=== PATIENT | female | born 1980 | race Caucasian/White ===

== ENCOUNTER 2021-05-22 12:21 | Emergency (ER) | payer OTHER, SELFPAY ==
--- NOTE | 2021-05-22 12:24 | ED.URI ---
HPI - URI/Sore Throat General Chief Complaint: Upper Respiratory Infection Stated Complaint: chest tightness/cough/upper back pain Time Seen by Provider: 05/22/21 12:24 Source: patient and RN notes reviewed History of Present Illness HPI Narrative: Patient is a 41-year-old female who presents the urgent care with complaints of harsh cough and upper back pain. Patient states that it started with cold symptoms approximately 3 weeks ago and is now settled in her chest. Patient states that she has been taking Robitussin-DM, Mucinex and cold and flu medication. Patient has been Covid vaccinated. Denies of any fevers, nausea, vomiting. No other acute complaints. No acute distress noted. Patient aware of the plan of care. Some parts of this dictation were generated by voice recognition software and may contain typographical and/or grammatical inaccuracies. Related Data Home Medications Medication Instructions Recorded Confirmed cetirizine 10 mg PO DAILY 05/22/21 05/22/21 drospirenone (contraceptive) 4 mg PO DAILY 05/22/21 05/22/21 [Slynd] Allergies Allergy/AdvReac Type Severity Reaction Status Date / Time sulfamethoxazole Allergy Unknown Anaphylaxis Verified 05/22/21 12:33 trimethoprim Allergy Unknown Anaphylaxis Verified 05/22/21 12:33 Review of Systems Review of Systems: CONSTITUTIONAL: Denies fever, chills, or sweats. EYES: Denies visual changes, redness, or discharge. ENT: Reports a mild postnasal drainage and rhinorrhea CARDIOVASCULAR: Denies chest pain, palpitations, or edema. RESPIRATORY: Reports of harsh cough without dyspnea GASTROINTESTINAL: Denies abdominal pain, nausea, vomiting, or diarrhea. GENITOURINARY: Denies dysuria or hematuria. SKIN: Denies rash or itching. MUSCULOSKELETAL: Reports of upper back pain exacerbated with cough NEUROLOGIC: Denies headache, numbness, or weakness. All other systems reviewed are negative, except as documented in HPI. [facility] Past Medical History Medical History (Updated 05/22/21 @ 12:37 by RAVI Ching) Asthma Social History Social History Smoking status: Never smoker Gender identity (if verbalized by the patient): Female Comments At the time of my signature, I reviewed and agree with the nursing past medical, surgical, social, and family history. There is no relevant family history pertinent to the patient complaint. Exam Narrative: GENERAL: This is a well-nourished, well-developed patient, in no apparent distress. HEAD: normocephalic, atraumatic. EYES: PERRL. Sclera clear/white. Vision is grossly intact. EARS: External ears normal, auditory canals clear and without drainage, TMs normal without perforation. Hearing grossly intact. NOSE: External nose normal with no obvious nasal discharge, nares without redness, no rhinorrhea. THROAT: Mucous membranes moist, posterior pharynx clear. NECK: Neck supple, non-tender without lymphadenopathy CARDIOVASCULAR: Regular rate and rhythm without murmurs, gallops, or rubs. RESPIRATORY: Slight crackles throughout. Breath sounds equal bilaterally. SKIN: warm, intact with no suspicious lesions or rash, good texture and turgor. NEURO: awake, alert, and oriented to person, place and time. There were no obvious focal neurologic abnormalities. EXTREMITIES: No clubbing, cyanosis, or edema. BACK: Nontender without deformity or crepitance. No flank tenderness. Course Vital Signs Vital signs: Vital Signs Temperature 98.4 F 05/22/21 12:26 Pulse Rate 102 H 05/22/21 12:26 Respiratory Rate 12 05/22/21 12:26 Blood Pressure 144/88 H 05/22/21 12:26 Pulse Oximetry 100 05/22/21 12:26 Temperature 98.4 F 05/22/21 12:26 Pulse Rate 102 H 05/22/21 12:26 Respiratory Rate 12 05/22/21 12:26 Blood Pressure 144/88 H 05/22/21 12:26 Pulse Oximetry 100 05/22/21 12:26 Reviewed-patient is informed that they may have pre-hypertension or hypertension based
[2021-05-22 12:26] VITALS: BP 144/88; PULSE 102; RESP 12; TEMP 36.9; O2SAT 100
== END 2021-05-22 12:57 | disposition home or self-care (01) ==
PROVIDERS: Emergency Provider Nurse Practitioner Family; PCP Physician Assistant
DX: J40 Bronchitis, not specified as acute or chronic (principal); J45.909 Unspecified asthma, uncomplicated
CPT/HCPCS: 99213; G0463

== ENCOUNTER 2022-02-26 10:47 | Emergency (ER) | payer OTHER, SELFPAY ==
[2022-02-26 11:00] VITALS: BP 128/92; PULSE 91; RESP 18; TEMP 36.6; O2SAT 100
--- NOTE | 2022-02-26 11:01 | ED.URI ---
HPI - URI/Sore Throat General Chief Complaint: Upper Respiratory Infection Stated Complaint: cough/chest tightness Time Seen by Provider: 02/26/22 11:15 Source: patient and RN notes reviewed Mode of arrival: ambulatory Limitations: no limitations History of Present Illness HPI Narrative: 42-year-old female presents to the [facility] with cough and chest congestion for about 2 weeks. States that she just got her COVID, was diagnosed with 12 February. States that her cough just has not gotten much better, worse over the last couple of days. Patient denies any fevers. Has a history of asthma. But has not used her inhaler. Related Data Home Medications Medication Instructions Recorded Confirmed cetirizine 10 mg tablet 10 mg PO DAILY 05/22/21 02/26/22 drospirenone (contraceptive) 4 mg 4 mg PO DAILY 05/22/21 02/26/22 (28) tablet (Slynd) benzonatate 100 mg capsule 100 mg PO TID PRN Cough 02/26/22 02/26/22 montelukast 10 mg tablet 10 mg PO DAILY 02/26/22 02/26/22 Allergies Allergy/AdvReac Type Severity Reaction Status Date / Time sulfamethoxazole Allergy Unknown Anaphylaxis Verified 02/26/22 10:58 trimethoprim Allergy Unknown Anaphylaxis Verified 02/26/22 10:58 Review of Systems Review of Systems: All systems reviewed & are unremarkable except as noted in HPI and below Constitutional: Constitutional: Reports no additional constitutional complaints, Denies chills and Denies fever(s) Eyes: Eyes: Reports no additional eye complaints ENT: Reports system reviewed and no additional complaints, except as documented Cardiovascular: Cardiovascular: Reports no additional cardiovascular complaints Respiratory: Respiratory: Reports as per HPI, Reports chest congestion, Reports cough, Reports dyspnea and Reports wheezing Gastrointestinal: Gastrointestinal: Reports no additional gastrointestinal complaints Musculoskeletal: Musculoskeletal: Reports no additional musculoskeletal complaints Integumentary/Breasts: Skin/Breast: Reports system reviewed and no additional complaints, except as docu Neurologic: Reports system reviewed and no additional complaints, except as documented Psychiatric: Psychiatric: Reports no additional psychiatric complaints Allergic/Immunologic: Allergic/Immunologic: Reports no additional allergic/immunologic complaints PMFSH Past Medical History Medical History Asthma Social History Social History (Reviewed 02/26/22 @ 21:06 by MAT Tello Smoking status: Never smoker Gender identity (if verbalized by the patient): Female Comments At the time of my signature, I reviewed and agree with the nursing past medical, surgical, social, and family history. There is no relevant family history pertinent to the patient complaint. Exam Const: General: healthy appearing, no acute distress and alert Nutritional Appearance: well nourished Orientation/consciousness: patient oriented x3 Limitations: no limitations HENMT: Head: normal to inspection Ears: external ears normal, TM's normal bilaterally and EAC's normal Eyes: General: appearance normal, both eyes and all related structures Pupils: Equal, round and reactive pupils present Neck: Neck: normal visual inspection, no lymphadenopathy and no meningeal signs Chest: Chest palpation & inspection: normal inspection of the chest Resp: Effort & Inspection: normal respiratory effort and no use of accessory muscles Auscultation: clear to auscultation bilaterally, no crackles, no rales, no rhonchi, wheezes left lower and right lower and diminished lung sounds bilateral throughout Cardio: Rate: regular rate Rhythm: regular rhythm GI: GI Palp: Yes Soft to palpation and No Tenderness to palpation present (GI) Back/Spine/Pelvis: Cervical Spine: normal cervical lordosis Thoracic/Lumbar Spine: thoracic and lumbar spine normal to inspection Skin: General skin exam: normal color Rashes: no r
[2022-02-26] MEDS: IPRATROPIUM BR 0.02% INH SOLN 0.5 MG/2.5 ML VIAL INHALATION (11:35)
[2022-02-26] MEDS: ALBUTEROL SULFATE NEB 2.5 MG/3 ML INH INHALATION (11:35)
[2022-02-26] MEDS: predniSONE 20 MG TABLET 40 MG PO (11:35)
== END 2022-02-26 12:18 | disposition home or self-care (01) ==
PROVIDERS: Emergency Provider Nurse Practitioner; PCP Physician Assistant
DX: J40 Bronchitis, not specified as acute or chronic (principal); Z86.16 Personal history of COVID-19; J45.909 Unspecified asthma, uncomplicated
CPT/HCPCS: 94640; 99213; G0463; J7512

== ENCOUNTER 2023-04-03 11:04 | Emergency (ER) | payer BC, OTHER, SELFPAY ==
[2023-04-03] VITALS (18 sets, daily range): BP systolic 102–118; BP diastolic 69–85; PULSE 91–124; RESP 9–23; TEMP 36.8; O2SAT 97–100
--- NOTE | ~2023-04-03 | CT_ITS ---
EXAMINATION: CT abdomen pelvis wo con DATE: 04/03/2023 11:59 INDICATION: Flank pain. Nausea. TECHNIQUE: Computed tomography (CT) of the abdomen and pelvis was performed without intravenous contr ast. Automated exposure control and iterative reconstruction technique were employed. The dose-length product was 576.13 mGy-cm. COMPARISON: None. FINDINGS: The visualized portions of the lung bases demonstrate minimal atelectasis. No pleural effus ion. The heart size is normal. No pericardial effusion. There is a small sliding hiatal hernia. 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 The liver, spleen, gallbladder, pancreas, adrenal glands, a nd kidneys are normal. There is no urolithiasis. There is a 10.0 cm subserosal uterine fibroid on the left. There are no dilated loops of bowel. The appendix is not visualized. There are no pathological ly enlarged lymph nodes. There is no free intraperitoneal fluid. There is mild thoracic and lumbar sp ondylosis. IMPRESSION: 1. Small sliding hiatal hernia. 2. Uterine fibroid. 3. No urolithiasis. Reviewed, dictated and finalized at location E.
--- NOTE | 2023-04-03 11:13 | ECG_ITS ---
Measurements Intervals [place] Rate: 121 P: 47 ID: [id number] QRS: 1 QRSD: 90 T: 34 QT: 338 QTc: 481 Interpretive Statements SINUS TACHYCARDIA DELAYED PRECORDIAL R/S TRANSITION LOW QRS VOLTAGE IN PRECORDIAL LEADS CONSIDER INFERIOR INFARCT, AGE INDETERMINATE BORDERLINE ST-T WAVE ABNORMALITY- ANTEROLAT/HIGH LAT LEADS ABNORMAL ECG COMPARED TO ECG 10/22/2018 19:17:20 SINUS TACHYCARDIA NOW PRESENT Electronically Signed On 04-03-2023 12:50:26 CDT by Arpan Canada D.O.
[2023-04-03 11:51] LABS: Basophils Absolute Auto 0.1 K/mm3 (0.0-0.1); Basophils Percent Auto 1.1 % (0.2-1.2); Hematocrit 46.8 % (37.0-47.0); Hemoglobin 15.5 g/dL (12.0-15.0); Immature Granulocyte Absolute 0.01 K/mm3 (0.00-0.031); Immature Granulocyte Percent A 0.2 % (0-0.5); Lymphocytes Absolute Auto 0.61 K/mm3 (0.9-3.2); Lymphocytes Percent Auto 11.1 % (18.3-44.2); Mean Corpuscular HGB Conc 33.1 g/dl (32-36); Mean Corpuscular Hemoglobin 30.3 pg (26-34); Mean Corpuscular Volume 91.6 fl (80-100); Mean Platelet Volume 9.7 fl (7.4-10.4); Monocytes Absolute Auto 0.3 K/mm3 (0.1-0.6); Monocytes Percent Auto 5.8 % (2.6-8.5); Neutrophils Absolute Auto 4.5 K/mm3 (1.3-6.7); Neutrophils Percent Auto 81.8 % (45.5-73.1); Platelet Count Result 194 k/mm3 (150-375); Red Blood Count 5.11 M/mm3 (4.2-5.4); Red Cell Distribution Width 13.5 % (11.5-14.5); White Blood Count 5.5 K/mm3 (4.5-10.0)
[2023-04-03 12:02] LABS: Alanine Aminotransferase 21 U/L (6-35); Albumin Level 4.4 g/dL (3.5-5.1); Alkaline Phosphatase 67 U/L (38-126); Anion Gap 9 mmol/L (8-16); Aspartate Amino Transferase 24 U/L (14-36); Bilirubin,Total 0.9 mg/dL (0.2-1.3); Blood Urea Nitrogen 11 mg/dL (7-17); Calcium 8.9 mg/dL (8.4-10.2); Carbon Dioxide 22 mmol/L (22-30); Chloride 106 mmol/L (98-107); Estimated CRCL calculation 88 ml/min; Estimated Glomerular Filt Rate > 60; Glucose 95 mg/dL (65-110); Lipase 151 U/L (23-300); Potassium 3.6 mmol/L (3.4-5.0); Sodium 137 mmol/L (137-145)
[2023-04-03 12:07] LABS: Appearance Urine Turbid (Clear); Bacteria Urine 1+ /hpf; Bilirubin Urine 2+ (Negative); Blood Urine 1+ (Negative); Calcium Oxalate Crystals Urine Present /hpf; Color Urine Dark Yellow (Yellow); Glucose Urine UA Negative (Negative); Ketones Urine 3+ mg/dL (Negative); Leukocyte Esterase Ur Negative LEU/UL (Negative); Need Manual Microscopic Reviewed; Nitrate Urine Negative (Negative); Protein Urine 1+ mg/dL (Negative); Squamous Epithelial Cell Urine Many /hpf (Few)
[2023-04-03 12:09] LABS: Add Urine Microscopic? YES
[2023-04-03] MEDS: SODIUM CHLORIDE 0.9% IV 1,000 ML 999 ML IV CONT (12:58)
--- NOTE | 2023-04-03 13:25 | ED.ABDPAIN ---
HPI - Abdominal Pain General Chief Complaint: Abdominal Pain Stated Complaint: possible kidney stones Time Seen by Provider: 04/03/23 11:20 History of Present Illness HPI narrative: 43-year-old female presents to the emergency room for evaluation of bilateral posterior flank pain for several months. Patient states that she recently started penicillin for dental infection. Was seen at her primary care's office and was given a prescription for Flomax. Presented today with complaints of worsening back pain and elevated heart rate in the 140s. Related Data Home Medications Medication Instructions Recorded Confirmed cetirizine 10 mg tablet 10 mg PO DAILY 05/22/21 02/26/22 drospirenone (contraceptive) 4 mg 4 mg PO DAILY 05/22/21 02/26/22 (28) tablet (Slynd) benzonatate 100 mg capsule 100 mg PO TID PRN Cough 02/26/22 02/26/22 montelukast 10 mg tablet 10 mg PO DAILY 02/26/22 02/26/22 Allergies Allergy/AdvReac Type Severity Reaction Status Date / Time sulfamethoxazole Allergy Unknown Anaphylaxis Verified 02/26/22 10:58 trimethoprim Allergy Unknown Anaphylaxis Verified 02/26/22 10:58 Review of Systems Review of Systems: CONSTITUTIONAL: Denies fever, chills, or sweats. EYES: Denies visual changes, redness, or discharge. ENT: Denies rhinorrhea, congestion, sore throat, or otalgia. CARDIOVASCULAR: Denies chest pain, palpitations, or edema. RESPIRATORY: Denies cough or dyspnea. GASTROINTESTINAL: Denies abdominal pain, nausea, vomiting, or diarrhea. GENITOURINARY: Denies dysuria or hematuria. SKIN: Denies rash or itching. MUSCULOSKELETAL: Reports back pain NEUROLOGIC: Denies headache, numbness, dizziness, or weakness. PSYCHIATRIC: Denies anxiety or depression. [facility] Past Medical History Medical History (Updated 04/03/23 @ 13:23 by Christopher Cornejo APRN) Asthma Social History Social History Smoking status: Never smoker Gender identity (if verbalized by the patient): Female Exam Narrative: GENERAL: Well-appearing, well-nourished, no physical limitations, and in no acute distress. HEAD: Normocephalic, atraumatic. EYES: Conjunctivae normal, PERRLA and EOMI. CHEST: Clear to auscultation. No respiratory distress. No wheezes rales or rhonchi. HEART: Regular rate and rhythm. No murmur heard. Normal peripheral pulses. ABDOMEN: Soft, nontender, nondistended, normal active bowel sounds. BACK: Mild bilateral CVA tenderness EXTREMITIES: Normal range of motion. No edema. No clubbing or cyanosis SKIN: Warm, dry, no rash. No noted wounds NEURO: No focal deficits. Alert and oriented x3. MAEW. CN's II-XI intact bilaterally, normal gait PSYCH: Cooperative. Normal mood and affect. Course Vital Signs Vital signs: Vital Signs Temperature 36.8 C 04/03/23 11:07 Pulse Rate 123 H 04/03/23 11:07 Respiratory Rate 16 04/03/23 11:07 Blood Pressure 118/77 04/03/23 11:07 Pulse Oximetry 100 04/03/23 11:07 Oxygen Delivery Room Air 04/03/23 11:07 Temperature 36.8 C 04/03/23 11:07 Pulse Rate 123 H 04/03/23 11:07 Respiratory Rate 16 04/03/23 11:07 Blood Pressure 118/77 04/03/23 11:07 Pulse Oximetry 100 04/03/23 11:07 Oxygen Delivery Room Air 04/03/23 11:07 MDM - Abdominal Pain MDM Narrative Medical decision making narrative: 43-year-old female presenting with bilateral lower back pain that she has been experiencing intermittently for several months. Patient was also complaining that she is constipated and has been having some difficulty urinating. Presented to the ER with concerns that she might have a kidney stone. Lab work was unremarkable. CT scan shows a 10 cm adenomyosis. Patient was aware of this uterine fibroid but said it was about 8 cm the last time he was evaluated. This could be the cause of her discomfort. Patient denied any vaginal bleeding, dysmenorrhea or chronic pelvic pain. Patient was given 2 L of fluid whi
== END 2023-04-03 13:55 | disposition home or self-care (01) ==
PROVIDERS: Emergency Provider Nurse Practitioner Family; PCP Physician Assistant
DX: D25.9 Leiomyoma of uterus, unspecified (principal); N39.0 Urinary tract infection, site not specified; R82.4 Acetonuria; M54.50 Low back pain, unspecified; K04.7 Periapical abscess without sinus; J45.909 Unspecified asthma, uncomplicated; K44.9 Diaphragmatic hernia without obstruction or gangrene
CPT/HCPCS: 36415; 74176; 80053; 81001; 81025; 83690; 85025; 87086; 93005; 96360; 99284; J7030

== ENCOUNTER 2023-05-21 01:27 | Day surgery (SDC) | payer BC, OTHER, SELFPAY ==
--- NOTE | 2023-05-14 14:12 | PC.NURSE ---
Report to the Outpatient Waiting Room, entrance under the green pavilion located off [facility], at time 0630 on date 05/21/23. Planned Procedure Time: 0830. Time changes happen often and if your time is changed the preop area will call you the afternoon before. - You and your visitor will be asked to self-screen and do not enter if you have any COVID symptoms. - A mask is optional within the hospital at this time. Patients may have clear liquids (water, carbonated beverages, clear teas, apple juice) until 3 hours prior to surgery with a maximum of 20 ounces. 0530 - No food from midnight until time of surgery - Infants may have breast milk until 4 hours before surgery, formula 6 hours prior to surgery. - Children will be allowed to drink immediately following surgery. If applicable, please bring a bottle or sippy cup to assist with drinking. Juice, water, soda, and popsicles are readily available. For infants on formula, please bring formula the day of surgery. Pacifiers are allowed. Take the following medications with a SIP of water the morning of surgery: inhalers PRN DO NOT STOP ANY OF YOUR OTHER PRESCRIPTION MEDICATIONS PRIOR TO SURGERY ?EXCEPT THE FOLLOWING Medications to discontinue per physician vitamins & supplements, cetirizine, valacyclovir, stool softener Date to take last dose 05/18/23- Vitamins & Supplements, 05/20/23- certrizine, valacyclovir, stool softener Please no make-up, nail pitcairn islander, hairspray, perfume, deodorant, or body powder the day of surgery. No jewelry (including any body piercings) or valuables the day of surgery, leave them at home. Please take a shower or bath the night before, or the morning of, surgery with an antibacterial soap. Wear comfortable, loose fitting clothing. Children are encouraged to wear pajamas. - Jewelry must be removed prior to entering the operating room. Rings and piercings that are not removed may be cut off. - The hospital will not accept responsibility for valuables. - Please leave all valuables, including medications, at home the day of surgery. If you are going home after surgery, a licensed ross carrier driver must drive you home. - NO public transportation without another adult if you receive anesthesia. - We recommend that an adult stay with you for 24 hours following discharge. - We also recommend that you do not drive, make important decision, drink alcoholic beverages, or take any drugs that were not prescribed by your health care provider for at least 24 hours after your discharge time. For Pediatric surgeries, we recommend two adults accompany the child home. Follow any additional instructions given to you from your surgeon. If you or anyone in your household have experienced Covid symptoms in the past week, please notify your surgeon or the nurse liaison at the phone number below for possible testing. Telephone instructions given to Patient- Nicol Simpson and asked if any additional questions and then verbalized understanding. Patient advised to call surgeon office or pre surgery nurse liaison [phone] if any additional questions.
[2023-05-14 14:25] VITALS: BMI 29.2
[2023-05-21] VITALS (11 sets, daily range): BP systolic 87–121; BP diastolic 54–75; PULSE 51–75; RESP 12–20; TEMP 36.2–37.3; O2SAT 99–100
[2023-05-21] MEDS: LACTATED RINGERS 1,000 ML 30 ML IV CONT ×2 (06:15→10:51)
--- NOTE | 2023-05-21 07:54 | WPDANESEPPF ---
Anes - Initial Pre Proc Eval Procedure: Operation Date: 05/21/23 08:30 Proposed Procedures p Total Laparoscopic Hysterectomy with Bilateral Salpingectomy - Miki Multani MD Date/Time: 05/21/23 07:54 Surgeon: Miki Multani MD Pre Op Diagnosis: uterine leiomyoma Patient Data Age: 43 Gender: F Height: 1.6 m Weight: 75 kg Allergies Allergy/AdvReac Type Severity Reaction Status Date / Time sulfamethoxazole Allergy Unknown Anaphylaxis Verified 02/26/22 10:58 trimethoprim Allergy Unknown Anaphylaxis Verified 02/26/22 10:58 Surgical Glue AdvReac Swelling Uncoded 05/14/23 13:57 Home Medications Medication Instructions Recorded Confirmed Type albuterol sulfate 90 mcg/actuation 2 puff inhalation QID PRN 05/22/21 05/14/23 Rx aerosol inhaler shortness of breath or wheezing #8 grams cetirizine 10 mg tablet 10 mg PO DAILY 05/22/21 05/14/23 History Acidophilus Probiotic 1 tab-cap PO BID 05/14/23 05/14/23 History Adults Multivitamin 1 tab-cap PO DAILY 05/14/23 05/14/23 History Stool Softener 1 cap PO DAILY 05/14/23 05/14/23 History budesonide-formoterol HFA 80 2 puff inhalation BID 05/14/23 05/14/23 History mcg-4.5 mcg/actuation aerosol inhaler (Symbicort) valacyclovir 500 mg tablet 500 mg PO DAILY 05/14/23 05/14/23 History Laboratory Tests 05/21/23 06:49 Blood Type B Positive Antibody Screen Pending Patient hx anesthesia problems: post op nausea/vomiting Family hx anesthesia problems: none Results Review: All pre-operative results and documents have been reviewed as part of the pre-operative evaluation. [facility] Past Medical History Medical History (Updated 04/04/23 @ 00:00 by Sheree Hu) Asthma Social History Social History Smoking status: Never smoker Gender identity (if verbalized by the patient): Female Spiritual care concerns: No Anes - Eval Final PreProcedure Day of Procedure 05/21/23 07:54 Patient weight: obese Heart: regular rate and rhythm Lungs: clear to auscultation Airway: Mallampati scale class II Neurological: alert and oriented Last oral intake: >/= 8 hours ASA classification: III Emergent: no Anesthetic plan: proceed Anesthesia type and monitoring: general ETT and standard monitoring Results Review: All pre-operative results and documents have been reviewed as part of the pre-operative evaluation. Informed Consent: The patient's anesthetic plan and its attendant risks and benefits were discussed with the patient/family/POA. Questions were solicited and answers provided to the satisfaction of the patient/family/POA.
[2023-05-21] MEDS: ACETAMINOPHEN 500 MG TABLET 1000 MG PO (08:00)
[2023-05-21] MEDS: KETOROLAC 15 MG/ML VIAL (*BKC) IV PUSH (08:00)
[2023-05-21] MEDS: SCOPOLAMINE 1.5 MG PATCH TRANSDERM (08:00)
--- NOTE | 2023-05-21 08:08 | WPDHPUPDATE1 ---
History and Physical Update Update Date/Time: 05/21/23 08:08 History and Physical has been reviewed, including an updated exam of the patient. There are NO changes in the patient's condition. Risks, benefits, and alternatives have been discussed and questions answered. Patient agrees to proceed with procedure.
[2023-05-21] MEDS: ceFAZolin 2 GM/D5W 50 ML 2 GM/50 ML BAG IVPB (08:33)
[2023-05-21] MEDS: ceFAZolin SODIUM 1 GM VIAL (09:14)
--- NOTE | 2023-05-21 10:52 | W.PM.PROC2 ---
Procedure Note - Detailed Date of Procedure 05/21/23 Pre-op Diagnosis uterine leiomyoma, pelvic pain, menorrhagia Post-op Diagnosis Same Procedure Performed Total laparoscopic hysterectomy. Surgeon Miki Multani MD Anesthesia General Indications Menorrhagia, fibroid uterus, pelvic pain Findings Very large fibroid uterus, normal-appearing tubes and ovaries. Description of Procedure This patient was taken to the operating room. She was prepped and draped in the dorsal lithotomy position after induction of general anesthesia. The uterine manipulator and Rupali cup were placed. This was done with a speculum and tenaculum. The speculum was placed. The cervix was grasped with a tenaculum. The stay sutures were placed at 3 and 9:00 a.m.. The stay sutures of 0 Vicryl were brought through the appropriately sized Rupali cup. The tip of the AHMET manipulator was placed in the intrauterine cavity. The cup was slid into place around the cervix and into the fornices. It was locked into place. The sutures were then wrapped around the handle and tied under tension. A 5 mm skin incision was made in the left upper quadrant the abdomen. A 5 mm trocar was inserted into the intrauterine cavity under direct visualization of the scope. Pneumoperitoneum was achieved. A left lower quadrant 11 mm incision was made with scalpel. An 11 mm trocar was inserted into the anterior abdominal cavity under direct visualization the scope. A 5 mm infraumbilical incision was made with a scalpel and a 5 mm trocar was inserted the intra-abdominal cavity under direct visualization of the scope. Bilateral ureteral lysis was performed. This was done from the pelvic brim down to the uterine artery. This was done with careful dissection using sharp and blunt dissection. The fallopian tubes were removed bilaterally. The mesosalpinx around the fallopian tubes were cauterized transected with LigaSure cautery. This was done in a bilateral fashion from the ovary to the uterine cornua. The fallopian tube was transected at the uterine cornu and amputated. The tube was taken out the left lower quadrant trocar site. In a stepwise fashion along the lateral aspects of the uterus the round ligament and broad ligaments were cauterized transected down to the level of the uterine arteries. A bladder flap was created in the bladder was moved distally to the end of the cervix and over the Rupali cup. The bilateral uterine arteries were cauterized and transected. Colpotomy was then performed. In a circumferential fashion the vagina was transected using unipolar cautery. The incision was made down on the Rupali cup. Cautery was then used to bifurcate the large uterus. The uterus and cervix were taken out through the vagina. A pneumo occluder was placed in the vagina. The vaginal cuff was closed with a 0 V lock suture in a running fashion. The pelvis was irrigated with copious amounts antibiotic irrigation. The ureters were again examined and found to be intact and flowing freely under the uterine arteries into the bladder. The bladder was intact. It was examined directly. The vagina was irrigated with Betadine solution after removal of the Pneumo occluder. The patient was taken to recovery room. She was stable condition. Sponge lap and needle counts were correct x2. Estimated Blood Loss 50 Drains Yes Packing No Pathology Yes Complications No immediate complications Condition Stable Disposition Floor
[2023-05-21] MEDS: ONDANSETRON INJ 4 MG/2 ML VIAL IV PUSH (11:05)
[2023-05-21] MEDS: fentaNYL CITRATE INJ (*CRX) 100 MCG/2 ML VIAL 25 MCG IV PUSH ×3 (11:32→11:41)
[2023-05-21] MEDS: DEXTROSE 5%/0.45% SOD CHL 1,000 ML 125 ML IV CONT (12:38)
--- NOTE | 2023-05-21 12:43 | OBPPTRN ---
1220 Patient transferred to post room #289 via bed. Support person present. Oriented to unit, room, information board, admission packet and security measures. Patient verbalizes understanding.
[2023-05-21] MEDS: valACYclovir HCL 500 MG TABLET PO (14:47)
[2023-05-21] MEDS: KETOROLAC 30 MG/ML VIAL (*BKC) IV PUSH (18:40)
[2023-05-21] MEDS: ALBUTEROL SULFATE (*SP) AEROSOL 1 PUFF 2 PUFF INHALATION (20:14)
[2023-05-22] MEDS: HYDROcodone/acetaminophen (*CRX) 5-325 MG TABLET 1 TAB PO ×4 (01:05→13:31)
[2023-05-22 01:24] VITALS: BP 97/61; PULSE 55; RESP 16; TEMP 37.3; O2SAT 99
[2023-05-22] MEDS: SIMETHICONE 80 MG TAB.CHEW PO ×4 (01:50→13:30)
[2023-05-22 05:56] VITALS: BP 98/54; PULSE 57; RESP 16; TEMP 37.2; O2SAT 99
[2023-05-22] MEDS: IBUPROFEN 600 MG TABLET PO ×2 (07:12→13:30)
[2023-05-22 07:59] VITALS: BP 93/65; PULSE 51; RESP 18; TEMP 36.7; O2SAT 99
[2023-05-22] MEDS: ALBUTEROL SULFATE (*SP) AEROSOL 1 PUFF 2 PUFF INHALATION (08:47)
[2023-05-22] MEDS: FLUTICASONE/SALMETEROL 45-21 MCG INHALER 1 PUFF 2 PUFF INHALATION (08:59)
[2023-05-22] MEDS: DOCUSATE SODIUM 100 MG CAPSULE PO (09:50)
[2023-05-22] MEDS: ACIDOPHILUS/BULGARICUS CHEWABLE TABLET 1 TABLET PO (09:51)
[2023-05-22] MEDS: MULTIVITAMINS THERAPEUTIC TAB (*BKC) 1 TABLET PO (09:51)
[2023-05-22] MEDS: LORATADINE 10 MG TABLET PO (09:51)
[2023-05-22] MEDS: valACYclovir HCL 500 MG TABLET PO (09:51)
--- NOTE | 2023-05-22 10:24 | WPDANESPN ---
Anes - Prog Note Post-Op Date/Time: 05/22/23 10:24 Cardiovascular status: normal Respiratory status: normal Airway patency: baseline Mental status: baseline Post-Op hydration status: normal Vital Signs: Last Vital Signs Temp 36.7 C 05/22/23 07:59 Pulse 51 L 05/22/23 07:59 Resp 18 05/22/23 07:59 BP 93/65 L 05/22/23 07:59 Pulse Ox 99 05/22/23 07:59 O2 Del Method Room Air 05/22/23 07:10 O2 Flow Rate 8 05/21/23 11:05 Pain Score (VAS): 210 I/O: Intake & Output 05/21/23 05/22/23 05/22/23 23:59 07:59 15:59 Intake Total 600 Output Total 925 225 Balance -925 375 Post-procedural complaints: none Patient Feedback: Patient satisfied with anesthetic care.
--- NOTE | 2023-05-22 11:18 | PC.NURSE ---
On 05/22/23, the student, Samara Rogel, provided care and completed [facility] documentation on this patient. I have reviewed the student's documentation and agree with the findings.
--- NOTE | 2023-05-22 13:32 | PM.GYNPNOP ---
MAKE UP ARTIST - A/P Postoperative Procedures: Procedures Operation Date: 05/21/23 08:30 Actual Procedure Side Surgeon p Total Laparoscopic Hysterectomy with Bilateral Salpingectomy Bilateral RMallory Multani MD Postoperative day: 1 Postoperative status: doing well Postoperative plan: see orders Time Spent With Patient Time: Total time spent is greater than 50% in coordination of care (as documented) at patient's floor/unit and/or counseling patient: Time with patient: less than 15 minutes MAKE UP ARTIST- PN:Subj Post-Op Subjective Date/time seen: 05/22/23 13:32 Subjective: patient reports feeling better, patient has no complaints and pain is well controlled Exam Const: General: healthy appearing, comfortable and no acute distress Resp: Auscultation: clear to auscultation bilaterally, no rales, no rhonchi and no wheezes Cardio: Rate: regular rate Heart sounds: no click, no murmurs and no rubs GI: Inspection: non-distended Auscultation: normal bowel sounds Extrem: General: normal to inspection, no pedal edema and no calf tenderness MAKE UP ARTIST - PN: Obj Data Vital Signs Vital Signs: Vital Signs - 24 hr 05/21/23 15:25 05/21/23 20:15 05/21/23 20:33 Temperature 98.2 F 99.2 F Pulse Rate 73 75 66 Respiratory Rate 16 16 14 Blood Pressure 91/56 L 87/54 L Pulse Oximetry 99 100 Oxygen Delivery 05/21/23 20:33 05/22/23 01:24 05/22/23 01:24 Temperature 99.2 F Pulse Rate 66 55 L 55 L Respiratory Rate 14 16 16 Blood Pressure 97/61 L Pulse Oximetry 100 99 99 Oxygen Delivery Room Air Room Air 05/22/23 05:56 05/22/23 05:56 05/22/23 07:59 Temperature 98.9 F 98.1 F Pulse Rate 57 L 57 L 51 L Respiratory Rate 16 16 18 Blood Pressure 98/54 L 93/65 L Pulse Oximetry 99 99 99 Oxygen Delivery Room Air 05/22/23 07:10 Temperature Pulse Rate Respiratory Rate Blood Pressure Pulse Oximetry Oxygen Delivery Room Air Intake/Output Intake/Output: Intake & Output 05/19/23 05/20/23 05/21/23 05/22/23 23:59 23:59 23:59 23:59 Intake Total 1530 600 Output Total 1655 325 Balance -125 275 Meds/Results Medications: Active Medications Generic Name Dose Route Start Last Admin Trade Name Freq PRN Reason Stop Dose Admin Hydrocodone Bitart/Acetaminophen 1 tab 05/21/23 12:12 05/22/23 13:31 Hydrocodone/Acetaminophen (*Crx) 5-325 Mg Tablet PO 1 tab Q3H PRN Administration Pain Rated 5 or Less Hydrocodone Bitart/Acetaminophen 1 tab 05/21/23 12:12 Hydrocodone/Acetaminophen (*Crx) 10-325 Mg Tablet PO Q3H PRN Pain Rated 6 or Greater Albuterol 2 puff 05/21/23 12:12 05/22/23 08:47 Albuterol Sulfate (*Sp) Aerosol 1 Puff INHALATION 2 puff QID PRN Administration shortness of breath or wheezing Docusate Sodium 100 mg 05/22/23 09:00 05/22/23 09:50 Docusate Sodium 100 Mg Capsule PO 100 mg DAILY JOAQUIN Administration Dextrose/Sodium Chloride 1,000 mls @ 125 mls/hr 05/21/23 12:12 05/22/23 06:44 Dextrose 5% Sodium Chloride 0.45% IV CONT Not Given .Q8H JOAQUIN Ibuprofen 600 mg 05/21/23 12:12 05/22/23 13:30 Ibuprofen 600 Mg Tablet PO 600 mg Q6H PRN Administration Cramping Ketorolac Tromethamine 30 mg 05/21/23 12:12 05/21/23 18:40 Ketorolac 30 Mg/Ml Vial (*Bkc) IV PUSH 05/26/23 12:11 30 mg Q6H PRN Administration Pain Rated 4-6 Lactobacillus Acidophilus 1 tablet 05/21/23 17:00 05/22/23 09:51 Acidophilus/Bulgaricus Chewable Tablet PO 1 tablet BID JOAQUIN Administration Loratadine 10 mg 05/22/23 09:00 05/22/23 09:51 Loratadine 10 Mg Tablet PO 10 mg DAILY JOAQUIN Administration Multivitamins Therapeutic 1 tablet 05/22/23 09:00 05/22/23 09:51 Multivitamins Therapeutic Tab (*Bkc) PO 1 tablet DAILY JOAQUIN Administration Naloxone HCl 0.1 mg 05/21/23 12:12 Naloxone Hcl 0.4 Mg/Ml Vial IV PUSH Q2M PRN Respiratory rate less than 10 Ondansetron HCl 4 mg 05/21/23 12:12 Ondansetron Inj 4 Mg/2 Ml
== END 2023-05-22 13:51 | disposition home or self-care (01) ==
LOC: ANHSURGERY 06:04 → ANHOB2 12:27
PROVIDERS: PCP Physician Assistant; Visit Provider Obstetrics & Gynecology
PROC: 0UT9FZZ Resection of Uterus, Via Natural or Artificial Opening With Percutaneous Endoscopic Assistance (ICD-10-PCS; CPT 58573; principal; 2023-05-21 08:30)
DX: D25.1 Intramural leiomyoma of uterus (principal); N83.8 Other noninflammatory disorders of ovary, fallopian tube and broad ligament; N71.1 Chronic inflammatory disease of uterus; N80.03 Adenomyosis of the uterus; N92.0 Excessive and frequent menstruation with regular cycle; R10.2 Pelvic and perineal pain; J45.909 Unspecified asthma, uncomplicated; Z79.51 Long term (current) use of inhaled steroids; E66.9 Obesity, unspecified; Z68.29 Body mass index [BMI] 29.0-29.9, adult
CPT/HCPCS: 58573; 36415; 86850; 86900; 86901; 88307; 94640; 99199; A9270; J0690; J1100; J1170; J1885; J2250; J2405; J2704; J3010; J7030; J7120